=== PATIENT | female | born 1975 | race Caucasian/White ===

== ENCOUNTER 2022-05-30 10:04 | Emergency (ER) | payer BC ==
[~2022-05-30] VITALS: Ht 170.2 cm; Wt 73.0 kg
[2022-05-30 11:29] LABS: BASOPHILS % 0.4 % (0.0-2.0); HEMOGLOBIN. 11.1 g/dL (12.0-16.0); LYMPHOCYTES % 35.1 % (20.0-50.0); MEAN CORPUSCULAR HEMOGLOBIN 25.5 pg (28.0-32.0); MEAN PLATELET VOLUME 8.8 fl (7.4-10.4); MONOCYTES % 8.7 % (2.0-8.0); NEUTROPHILS % 54.8 % (40.0-76.0); PLATELET 279 x1000/uL (130-400); RED BLOOD CELL COUNT 4.34 mill/uL (4.2-5.4)
[2022-05-30 11:36] LABS: CHLORIDE 106 mEq/L (98-107)
[2022-05-30 11:38] LABS: CLARITY URINE CLOUDY (CLEAR); COLOR URINE YELLOW (YELLOW); KETONES URINE NEGATIVE (NEGATIVE); LEUKOCYTE ESTERASE URINE NEGATIVE (NEGATIVE); NITRITE URINE NEGATIVE (NEGATIVE); OCCULT BLOOD URINE NEGATIVE (NEGATIVE); PH URINE 6.5 (4.5-8.0); PROTEIN URINE NEGATIVE (NEGATIVE); SPECIFIC GRAVITY URINE 1.009 (1.005-1.030); UROBILINOGEN URINE 0.2 E.U./dL (0.2-1.0)
[2022-05-30 11:49] LABS: HCG SCREEN NEGATIVE
[2022-05-30] MEDS ORDERED: MECLIZINE 25MG TABLET PO ONE (12:00)
[2022-05-30] MEDS ORDERED: MECLIZINE 12.5MG TABLET PO NR (12:15)
[2022-05-30] MEDS ORDERED: MECL-159 PO (13:36)
[2022-05-30] MEDS ORDERED: NITR100C PO (13:42)
[2022-05-30 14:16] VITALS: BP 120/62
== END 2022-05-30 14:16 | disposition home or self-care (01) ==
LOC: ER 10:04
DX: R42 Dizziness and giddiness (principal); N39.0 Urinary tract infection, site not specified
CPT/HCPCS: 36415; 70450; 71045; 80053; 81003; 81025; 83880; 84484; 84703; 85025; 93005; 99285; Z7610; J8597